=== PATIENT | female | born 1960 | race Caucasian/White ===

== ENCOUNTER 2020-01-27 21:56 | Emergency (ER) | payer OTHER ==
[~2020-01-27] VITALS: Ht 177.8 cm; Wt 86.4 kg
--- NOTE | 2020-01-27 23:19 | NUR ---
pt reports she has a port and she is agreeable to us accessing it if needed.
[2020-01-27] MEDS ORDERED: tamsulosin 0.4mg capsule PO SCH (23:25)
[2020-01-27] MEDS ORDERED: proMETHazine 25mg rectal suppository RC ONE (23:25)
[2020-01-27] MEDS ORDERED: pantoprazole 40 MG vial IV ONE (23:25)
[2020-01-27] MEDS ORDERED: HYDROmorphone 1 mg/ml syringe IV ONE (23:25)
[2020-01-27] MEDS ORDERED: normal saline 1000ML IV soln IVB ONE (23:25)
[2020-01-27 23:55] LABS: MEAN PLATELET VOLUME 7.8 FL (7.4-10.4)
[2020-01-27 23:56] LABS: BASOPHILS # (AUTO) 0.1 X10'3 (0-0.2); BASOPHILS % (AUTO) 0.7 % (0-1); EOSINOPHILS # (AUTO) 0.1 X10'3 (0-0.9); EOSINOPHILS % (AUTO) 1.3 % (0-6); HEMOGLOBIN 10.6 g/dl (12.0-16.0); LYMPHOCYTES # (AUTO) 1.8 X10'3 (1.1-4.8); LYMPHOCYTES % (AUTO) 23.3 % (21-51); MEAN CORPUSCULAR HEMOGLOBIN 24.4 PG (27.0-31.0); MEAN CORPUSCULAR VOLUME 76.2 FL (78-98); MONOCYTES # (AUTO) 0.8 X10'3 (0-0.9); MONOCYTES % (AUTO) 11.1 % (2-12); NEUTROPHILS # (AUTO) 4.9 X10'3 (1.8-7.7); NEUTROPHILS % (AUTO) 63.6 % (42-75); PLATELET COUNT 281 X10'3 (140-440); RED BLOOD COUNT 4.33 X10'6 (4.20-5.60); RED CELL DISTRIBUTION WIDTH 17.5 % (11.5-14.5); WHITE BLOOD COUNT 7.6 X10'3 (4.5-11.0)
[2020-01-28 00:09] LABS: ALANINE AMINOTRANSFERASE 29 U/L (12-78); ALBUMIN 3.5 G/DL (3.4-5.0); ALKALINE PHOSPHATASE 119 IU/L (46-116); ANION GAP 11 (8-16); ASPARTATE AMINO TRANSFERASE 22 U/L (10-37); BILIRUBIN,TOTAL 0.4 MG/DL (0.1-1.0); BLOOD UREA NITROGEN 11 MG/DL (7-18); BUN/CREATININE RATIO 12.1 (6.6-38.0); CALCIUM 8.5 MG/DL (8.5-10.1); CHLORIDE 105 MMOL/L (99-107); CREATININE 0.91 MG/DL (0.40-0.90); GLUCOSE 100 MG/DL (70-104); LIPASE 85 U/L (73-393); POTASSIUM 3.5 MMOL/L (3.5-5.1); SODIUM 139 MMOL/L (135-145); TOTAL CARBON DIOXIDE 23.4 MMOL/L (24-32); eGFR 64 ML/MIN
[2020-01-28] MEDS ORDERED: LORazepam 2 mg/ml vial IV ONE (00:15)
[2020-01-28] MEDS ORDERED: proCHLORperazine 10 MG/2 ml inj IV ONE (00:15)
--- NOTE | 2020-01-28 00:42 | NUR ---
pt repored earlier that she has phenergan suppositories and has used them today and they have not helped and she gets irritation in her rectum and some bleeding with any suppositories. states allergic to all other antiemetics. reports ativan works. bp 179/118. reports pain now 8 out of 10 to r flank and her nausea is 7 out of 10. up with steady hunched over gait to br to provide urine sample. compazine was ordered but she reports she gets dystonic reactions and cannot take it. just given ativan 1 mg.
--- NOTE | 2020-01-28 00:58 | NUR ---
DR LANDON UPDATED OF PTS PAIN AND NAUSEA AND BP. ADTL DILAUDID 0.5 MG IV ORDERED AND COLNADINE 0.2 MG. PT NEEDS TO TOLERATE PO BEFORE DC.
[2020-01-28] MEDS ORDERED: cloNIDine 0.1 mg tablet PO ONE (01:00)
[2020-01-28] MEDS ORDERED: HYDROmorphone inj. 0.5 MG/0.5 ML DISP.SYRIN IV ONE ×3 (01:00→02:15)
[2020-01-28 01:02] LABS: CLARITY,URINE CLOUDY (Clear); COLOR,URINE ORANGE (Yellow); GLUCOSE, URINE NEGATIVE (Neg); KETONES,URINE NEGATIVE (Neg); LEUKOCYTE ESTERASE ,URINE MODERATE (Neg); NITRITES, URINE NEGATIVE (Neg); OCCULT BLOOD,URINE LARGE (Neg); PH,URINE 6.5 (4.8-8.0); PROTEIN,URINE 30 mg/dl (Neg)
[2020-01-28 01:06] LABS: UA COLLECTION TYPE NON-SPECIFIED
[2020-01-28 01:08] LABS: BACTERIA,URINE 2+ /HPF (Neg); RBC,URINE TNTC /HPF (0-2); SQUAMOUS EPITHELIAL CELL,UR MODERATE /LPF (FEW)
--- NOTE | 2020-01-28 02:08 | NUR ---
pt states she has a long drive home if she could get another dose of dilaudid she will be on her way, she thinks shell make it home more comfortably. Dr bowen made aware.
[2020-01-28] MEDS: heparin sodium, porcine/PF 100unit/ml 5ML syringe IV SCH ×2 (02:46)
[2020-01-28 02:52] VITALS: BP 150/101
== END 2020-01-28 02:53 | disposition home or self-care (01) ==
LOC: ER 21:56
DX: N23 Unspecified renal colic (principal); R11.2 Nausea with vomiting, unspecified; R42 Dizziness and giddiness; I10 Essential (primary) hypertension; K75.4 Autoimmune hepatitis; K22.6 Gastro-esophageal laceration-hemorrhage syndrome; Z88.8 Allergy status to other drugs, medicaments and biological substances; Z88.6 Allergy status to analgesic agent
CPT/HCPCS: 36415; 80053; 81001; 83690; 85025; 87088; 96361; 96374; 96375; 96376; 99284; C9113; J1170; J1642; J2060; J7030

== ENCOUNTER 2020-02-18 00:47 | Emergency (ER) | payer OTHER ==
[~2020-02-18] VITALS: Ht 177.8 cm; Wt 86.4 kg
--- NOTE | 2020-02-18 00:54 | NUR ---
PATIENT HAS EXISTING PORT FOR IV ACCESS, STATES "IT WAS LAST FLUSHED AT THE END LAST WEEK"
[2020-02-18] MEDS ORDERED: LORazepam 2 mg/ml vial IV ONE (00:55)
[2020-02-18] MEDS ORDERED: pantoprazole 40 MG vial IV ONE (01:00)
--- NOTE | 2020-02-18 01:21 | NUR ---
SBP 190'S WITH TRIAGE,DR WYNNE MADE AWARE,PATEINT REPORTS SHE TAKES CLONIDINE TWICE A DAY BUT DID NOT TAKE IT THIS EVENING BECAUSE OF EMESIS.NO NEW ORDER FROM DR. WYNNE AT THIS TIME.
[2020-02-18 01:25] LABS: BASOPHILS % (AUTO) 0.6 % (0-1); EOSINOPHILS % (AUTO) 0.5 % (0-6); HEMATOCRIT 39.9 % (35.0-45.0); LYMPHOCYTES # (AUTO) 1.3 X10'3 (1.1-4.8); LYMPHOCYTES % (AUTO) 24.4 % (21-51); MEAN CORPUSCULAR HEMOGLOBIN 26.8 PG (27.0-31.0); MEAN CORPUSCULAR HGB CONC 32.6 g/dL (33.0-36.5); MEAN CORPUSCULAR VOLUME 82.1 FL (78-98); MEAN PLATELET VOLUME 7.8 FL (7.4-10.4); MONOCYTES # (AUTO) 0.5 X10'3 (0-0.9); NEUTROPHILS # (AUTO) 3.6 X10'3 (1.8-7.7); NEUTROPHILS % (AUTO) 65.5 % (42-75); PLATELET COUNT 203 X10'3 (140-440); RED BLOOD COUNT 4.86 X10'6 (4.20-5.60); RED CELL DISTRIBUTION WIDTH 24.5 % (11.5-14.5); WHITE BLOOD COUNT 5.5 X10'3 (4.5-11.0)
--- NOTE | 2020-02-18 01:27 | NUR ---
port-a-cath on right chest was accessed under sterile procedure,port flushing without resistance,patient tolerated procedure well.Blood sample collected from the port and was sent to the lab.Due meds given,we will monitor.
[2020-02-18 01:32] LABS: ALANINE AMINOTRANSFERASE 69 U/L (12-78); ALBUMIN 3.9 G/DL (3.4-5.0); ALBUMIN/GLOBULIN RATIO 1.1 (1.1-1.5); ALKALINE PHOSPHATASE 164 IU/L (46-116); ANION GAP 10 (8-16); ASPARTATE AMINO TRANSFERASE 35 U/L (10-37); BILIRUBIN,TOTAL 0.3 MG/DL (0.1-1.0); BLOOD UREA NITROGEN 17 MG/DL (7-18); BUN/CREATININE RATIO 18.7 (6.6-38.0); CALCIUM 8.5 MG/DL (8.5-10.1); CHLORIDE 104 MMOL/L (99-107); CREATININE 0.91 MG/DL (0.40-0.90); GLUCOSE 118 MG/DL (70-104); POTASSIUM 3.5 MMOL/L (3.5-5.1); SODIUM 139 MMOL/L (135-145); TOTAL CARBON DIOXIDE 25.2 MMOL/L (24-32); TOTAL PROTEIN 7.6 G/DL (6.4-8.2); eGFR 64 ML/MIN
[2020-02-18] MEDS ORDERED: scopolamine 1.5mg patch.TD72 TD ONE (01:35)
[2020-02-18] MEDS ORDERED: morphine 4 MG/ML inj SYRINge IV ONE ×2 (01:35→02:25)
[2020-02-18] MEDS ORDERED: diphenhydrAMINE 50 mg/ml inj IV ONE (01:35)
[2020-02-18 01:40] LABS: PARTIAL THROMBOPLASTIN TIME 35 SECONDS (22-32)
--- NOTE | 2020-02-18 01:42 | NUR ---
BACK FROM CT
[2020-02-18 01:54] LABS: ANISOCYTOSIS 3+; PLATELET ESTIMATE NORMAL
[2020-02-18 02:10] VITALS: BP 177/116
[2020-02-18] MEDS ORDERED: heparin sodium, porcine/PF 100unit/ml 5ML syringe IV SCH (02:46)
[2020-02-18] MEDS ORDERED: heparin sodium, porcine/PF 100unit/ml 5ML syringe IV ONE (02:55)
[2020-02-18] MEDS ORDERED: SCOP1PAT11 TOP (03:09)
== END 2020-02-18 03:35 | disposition home or self-care (01) ==
LOC: ER 00:48
DX: R11.2 Nausea with vomiting, unspecified (principal); R10.9 Unspecified abdominal pain; I10 Essential (primary) hypertension; Z88.5 Allergy status to narcotic agent; Z88.8 Allergy status to other drugs, medicaments and biological substances
CPT/HCPCS: 36415; 71045; 74176; 80053; 85008; 85025; 85610; 85730; 93005; 96374; 96375; 96376; 99285; C9113; J1200; J1642; J2060; J2270